=== PATIENT | female | born 1980 | race Caucasian/White ===

== ENCOUNTER 2018-01-10 17:44 | Emergency (ER) | payer OTHER ==
[2015-05-07 09:14] VITALS: Wt 81.6 kg
[~2018-01-10 17:44] MED LIST: BUSP10TA95 PO; CYCL10TA29 PO; DIAZ-305 PO; GABA-551 PO; LORA-636 PO; MULT-865 PO; NEOM28OI14 TP; PER PO; TRAZ100T31 PO; VENL75CA58 PO
[2018-01-10 17:53] VITALS: BP 147/94
[2018-01-10] MEDS ORDERED: TRINTELLIX PO (18:04)
--- NOTE | 2018-01-10 18:13 | ER Report ---
History and Physical Time Seen By MD: 18:40 Hx. of Stated Complaint: right sided abd for the past 6 hours HPI/ROS CHIEF COMPLAINT: Right-sided back pain/Right abdominal pain HISTORY OF PRESENT ILLNESS: Patient is a 37-year-old female here with complaints of right-sided back pain, right sided abdominal pain, nausea, vomiting. Patient reportedly has had this pain before which she attributes to straining while lifting. Pain has been present for the past several hours. Denies fevers, chills, chest pain, shortness of breath, headache, blurred vision , incontinence of bowel or bladder. REVIEW OF SYSTEMS: Constitutional: No fever, no chills. Eyes: No discharge. ENT: No sore throat. Cardiovascular: No chest pain, no palpitations. Respiratory: No cough, no shortness of breath. Gastrointestinal: + right sided abdominal pain, nausea Genitourinary: No hematuria. Musculoskeletal: + Right sided back pain Skin: No rashes. Neurological: No headache. Allergies: Coded Allergies: No Known Drug Allergies (Unverified , 08/22/16) Home Meds Active Scripts Glycopyrrolate (GLYCOPYRROLATE) 1 Mg Tablet, 1 TAB PO BID Y for PAIN, #10 TAB 0 Refills Use up to twice each day as needed for gallbladder pain Prov:PAOLA EDDY MD 01/16/18 Cephalexin 500 Mg Tab (KEFLEX 500 MG TAB) 500 Mg Tablet, 500 MG PO Q6H, #20 TAB 0 Refills TAKE ONE TABLET BY MOUTH EVERY SIX HOURS Prov:ROGER PA MD 01/15/18 Ondansetron Hcl (ZOFRAN) 4 Mg Tablet, 4 MG PO Q8H for Nausea, #15 TAB 0 Refills Prov:ROGER PA MD 01/15/18 Ondansetron (ZOFRAN ODT) 4 Mg Tab.rapdis, 4 MG PO Q6H Y for NAUSEA/VOMITING, # 20 TAB.ANN 0 Refills Prov:ERICK CONDE DO 01/10/18 Oxycodone Hcl/Acetaminophen (PERCOCET 5-325 MG TABLET) 1 Each Tablet, 1 EACH PO Q4H Y for PAIN, #6 TAB 0 Refills Prov:ERICK CONDE DO 01/10/18 Reported Medications Gabapentin (GABAPENTIN) 300 Mg Capsule, 800 MG PO BID for Anxiety, CAPSULE 01/17/18 Cholecalciferol (Vitamin D3) (VITAMIN D3) 1,000 Unit Tablet, 1000 UNIT PO 5XD, TAB 01/16/18 Aripiprazole (ABILIFY) 5 Mg Tablet, 5 MG PO BID, TAB 01/16/18 Ropinirole Hcl (ROPINIROLE HCL) 3 Mg Tablet, 3 MG PO DAILY 01/16/18 [Trintellix ] No Conflict Check, 30 MG PO DAILY 01/10/18 Buspirone Hcl (BUSPIRONE HCL) 10 Mg Tablet, 30 MG PO BID, TAB 05/06/15 Lorazepam (LORAZEPAM) 2 Mg Tablet, 2 MG PO BID Y for ANXIETY/AGITATION 05/06/15 Discontinued Scripts Oxycodone Hcl/Acet 5/325 Mg (ENDOCET 5-325 TABLET) 1 Each Tablet, 1 TAB PO Q6H Y for PAIN, #10 TAB 0 Refills Prov:PAOLA EDDY MD 01/16/18 Oxycodone Hcl/Acetaminophen (PERCOCET 5-325 MG TABLET) 1 Each Tablet, 1 EACH PO Q4H for PAIN, #15 TAB 0 Refills Prov:ROGER PA MD 01/15/18 Dicyclomine Hcl (DICYCLOMINE HCL) 20 Mg Tablet, 20 MG PO QID for abdominal cramping, #30 TAB Prov:ROGER PA MD 01/15/18 Cyclobenzaprine Hcl (CYCLOBENZAPRINE HCL) 10 Mg Tablet, 10 MG PO TID for m, #9 TAB 0 Refills Prov:ROGER PA MD 08/22/16 Hx Smoking: No Smoking Status: Never Smoker Exposure to Second Hand Smoke?: No Hx Substance Use Disorder: No Hx Alcohol Use: No Constitutional Physical Exam General Appearance: The patient is alert, has no immediate need for airway protection and no signs of toxicity. Mild distress secondary to pain Eyes: Pupils equal and round no pallor or injection. ENT, Mouth: Mucous membranes are moist. Respiratory: There are no retractions, lungs are clear to auscultation. Cardiovascular: Regular rate and rhythm. Gastrointestinal: Abdomen is soft and + tender right abdomen, no masses, bowel sounds normal. Neurological: No focal neurological deficits Skin: Warm and dry, no rashes. Musculoskeletal: + Right-sided back pain on palpation and range of motion Extremities are nontender, nonswollen and have full range of motion. [ ] DIFFERENTIAL DIAGNOSIS: After history and physical exam differential diagnosis was considered for back pain including but not limited to muscular pain, herniated disc, spine fracture, intra-abdominal causes and urinary tract infection. Medical Decision Making Data Points Laboratory Hematology Test 01/10/18 18:06 01/10/18 18:52 Urine Color Yellow Urine Clarity Slightly-cloudy Urine pH 5.0 pH (4.8-9.5) Urine Specific [place] 1.024 Urine Protein Negative mg/dL (NEGATIVE) Urine Glucose (UA) Negative mg/dL (NEGATIVE) Urine Ketones Negative mg/dL (NEGATIVE) Urine Blood Small (NEGATIVE) Urine Nitrite Negative (NEGATIVE) Urine Bilirubin Negative (NEGATIVE) Urine Urobilinogen Negative mg/dL (0.2-1.9) Urine Leukocyte Esterase Small (NEGATIVE) Urine RBC 1 /HPF (0-2/HPF) Urine WBC 2 /HPF (0-5/HPF) Urine Squamous Epithelial Cells Many /LPF (</=FEW) Urine Calcium Oxalate Crystals Moderate /HPF (NONE) Urine Bacteria Few /HPF (NONE-FEW) Urine Hyaline Casts Few /LPF (NONE-FEW) Urine Mucus Few /HPF (NONE-FEW) Urine HCG, Qualitative Negative (NEGATIVE) Red Blood Count 4.64 M/uL (4.17-5.56) Mean Corpuscular Volume 89.3 fL (80.0-96.0) Mean Corpuscular Hemoglobin 31.7 pg (26.0-33.0) Mean Corpuscular Hemoglobin Concent 35.5 g/dL (32.0-36.0) Red Cell Distribution Width 14.8 % (11.5-14.5) Mean Platelet Volume 8.1 fL (7.2-11.1) Neutrophils (%) (Auto) 72.4 % (39.4-72.5) Lymphocytes (%) (Auto) 18.0 % (17.6-49.6) Monocytes (%) (Auto) 8.6 % (4.1-12.4) Eosinophils (%) (Auto) 0.4 % (0.4-6.7) Basophils (%) (Auto) 0.6 % (0.3-1.4) Nucleated RBC Relative Count (auto) 0.0 /100WBC Neutrophils # (Auto) 6.8 K/uL (2.0-7.4) Lymphocytes # (Auto) 1.7 K/uL (1.3-3.6) Monocytes # (Auto) 0.8 K/uL (0.3-1.0) Eosinophils # (Auto) 0.0 K/uL (0.0-0.5) Basophils # (Auto) 0.1 K/uL (0.0-0.1) Nucleated RBC Absolute Count (auto) 0.00 K/uL Sodium Level 139 mmol/L (137-145) Potassium Level 4.0 mmol/L (3.5-5.0) Chloride Level 103 mmol/L (98-107) Carbon Dioxide Level 25 mmol/L (22-31) Blood Urea Nitrogen 10 mg/dl (7-18) Creatinine 1.00 mg/dl (0.52-1.04) Glomerular Filtration Rate Calc > 60.0 Random Glucose 101 mg/dl (75-110) Calcium Level 9.2 mg/dl (8.4-10.2) Total Bilirubin 0.4 mg/dl (0.2-1.3) Aspartate Amino Transf (AST/SGOT) 21 U/L (0-35) Alanine Aminotransferase (ALT/SGPT) 28 U/L (0-56) Alkaline Phosphatase 45 U/L (0-126) Total Protein 7.7 g/dl (6.3-8.2) Albumin 4.5 g/dl (3.5-5.0) Lipase 38 U/L (23-300) Chemistry Test 01/10/18 18:06 01/10/18 18:52 Urine Color Yellow Urine Clarity Slightly-cloudy Urine pH 5.0 pH (4.8-9.5) Urine Specific [place] 1.024 Urine Protein Negative mg/dL (NEGATIVE) Urine Glucose (UA) Negative mg/dL (NEGATIVE) Urine Ketones Negative mg/dL (NEGATIVE) Urine Blood Small (NEGATIVE) Urine Nitrite Negative (NEGATIVE) Urine Bilirubin Negative (NEGATIVE) Urine Urobilinogen Negative mg/dL (0.2-1.9) Urine Leukocyte Esterase Small (NEGATIVE) Urine RBC 1 /HPF (0-2/HPF) Urine WBC 2 /HPF (0-5/HPF) Urine Squamous Epithelial Cells Many /LPF (</=FEW) Urine Calcium Oxalate Crystals Moderate /HPF (NONE) Urine Bacteria Few /HPF (NONE-FEW) Urine Hyaline Casts Few /LPF (NONE-FEW) Urine Mucus Few /HPF (NONE-FEW) Urine HCG, Qualitative Negative (NEGATIVE) White Blood Count 9.4 k/uL (4.5-11.0) Red Blood Count 4.64 M/uL (4.17-5.56) Hemoglobin 14.7 g/dL (12.0-16.0) Hematocrit 41.5 % (34.0-47.0) Mean Corpuscular Volume 89.3 fL (80.0-96.0) Mean Corpuscular Hemoglobin 31.7 pg (26.0-33.0) Mean Corpuscular Hemoglobin Concent 35.5 g/dL (32.0-36.0) Red Cell Distribution Width 14.8 % (11.5-14.5) Platelet Count 269 K/uL (150-450) Mean Platelet Volume 8.1 fL (7.2-11.1) Neutrophils (%) (Auto) 72.4 % (39.4-72.5) Lymphocytes (%) (Auto) 18.0 % (17.6-49.6) Monocytes (%) (Auto) 8.6 % (4.1-12.4) Eosinophils (%) (Auto) 0.4 % (0.4-6.7) Basophils (%) (Auto) 0.6 % (0.3-1.4) Nucleated RBC Relative Count (auto) 0.0 /100WBC Neutrophils # (Auto) 6.8 K/uL (2.0-7.4) Lymphocytes # (Auto) 1.7 K/uL (1.3-3.6) Monocytes # (Auto) 0.8 K/uL (0.3-1.0) Eosinophils # (Auto) 0.0 K/uL (0.0-0.5) Basophils # (Auto) 0.1 K/uL (0.0-0.1) Nucleated RBC Absolute Count (auto) 0.00 K/uL Glomerular Filtration Rate Calc > 60.0 Calcium Level 9.2 mg/dl (8.4-10.2) Total Bilirubin 0.4 mg/dl (0.2-1.3) Aspartate Amino Transf (AST/SGOT) 21 U/L (0-35) Alanine Aminotransferase (ALT/SGPT) 28 U/L (0-56) Alkaline Phosphatase 45 U/L (0-126) Total Protein 7.7 g/dl (6.3-8.2) Albumin 4.5 g/dl (3.5-5.0) Lipase 38 U/L (23-300) Urinalysis Test 01/10/18 18:06 Urine Color Yellow Urine Clarity Slightly-cloudy Urine pH 5.0 pH (4.8-9.5) Urine Specific [place] 1.024 Urine Protein Negative mg/dL (NEGATIVE) Urine Glucose (UA) Negative mg/dL (NEGATIVE) Urine Ketones Negative mg/dL (NEGATIVE) Urine Blood Small (NEGATIVE) Urine Nitrite Negative (NEGATIVE) Urine Bilirubin Negative (NEGATIVE) Urine Urobilinogen Negative mg/dL (0.2-1.9) Urine Leukocyte Esterase Small (NEGATIVE) Urine RBC 1 /HPF (0-2/HPF) Urine WBC 2 /HPF (0-5/HPF) Urine Squamous Epithelial Cells Many /LPF (</=FEW) Urine Calcium Oxalate Crystals Moderate /HPF (NONE) Urine Bacteria Few /HPF (NONE-FEW) Urine Hyaline Casts Few /LPF (NONE-FEW) Urine Mucus Few /HPF (NONE-FEW) Urine HCG, Qualitative Negative (NEGATIVE) EKG/Imaging Imaging EXAMINATION: Right upper quadrant abdominal ultrasound HISTORY: Right upper quadrant abdominal pain. COMPARISON: CT abdomen/pelvis performed today. FINDINGS: Liver: Normal hepatic echotexture. No focal liver lesions identified. Antegrade flow is visualized in the main portal vein. Gallbladder: Cholelithiasis, with multiple shadowing stones in the gallbladder. No gallbladder wall thickening or pericholecystic fluid. Negative sonographic Mock sign. Bile Ducts: No biliary ductal dilatation. The common duct measures 3 mm. Pancreas: The head and body of the pancreas are moderately well visualized and unremarkable where seen. Right kidney: Normal echogenicity of the right kidney. The renal cortical parenchyma is maintained. No hydronephrosis. The right kidney measures 10.4 cm in length. Aorta: Patent and normal in caliber. IVC: Patent. Ascites: None. IMPRESSION: 1. Cholelithiasis, without ultrasound evidence of cholecystitis. 2. No bile duct dilatation. EXAMINATION: CT abdomen and pelvis with contrast COMPARISON: None. HISTORY: Right-sided abdominal pain. PROCEDURE: Multiplanar contrast enhanced CT of the abdomen and pelvis with 75 mL intravenous Isovue 370. One of the following dose optimization techniques was utilized in the performance of this exam: Automated exposure control; adjustment of the mA and/or kV according to the patient's size; or use of an iterative reconstruction technique. Specific details can be referenced in the facility's radiology CT exam operational policy. FINDINGS: Visualized thorax: Right middle lobe 5 mm nodule. Mild atelectasis. No acute findings. Liver: Negative. Gallbladder and biliary system: Cholelithiasis. No pericholecystic inflammation. No bile duct dilation. Spleen: Negative. Pancreas: Negative. Adrenal glands: Negative. Kidneys and bladder: No renal mass or evidence of an obstructive uropathy. Urinary bladder is unremarkable. Vessels: Within normal limits. Bowel and mesentery: Stomach, small bowel, and appendix are unremarkable. Minimal stool in the colon. No bowel or mesenteric inflammation. Pelvic organs: Left ovary corpus luteum. No acute findings. Lymph nodes: No adenopathy. Free air/free fluid: None. Abdominal wall and osseous structures: Negative. IMPRESSION: 1. No findings of acute disease in the abdomen or pelvis. 2. Cholelithiasis. ED Course/Re-evaluation ED Course Patient is a 37-year-old female here with complaints of right-sided back pain and right upper abdominal pain without incontinence of bowel or bladder, focal neurological deficits, nausea vomiting, chest pain, shortness breath, neck pain. CBC, CMP, lipase, urinalysis were unremarkable. CT imaging of the abdomen and pelvis were remarkable for cholelithiasis. Due to the patient's clinical exam and right-sided abdominal pain and presence of cholelithiasis, right upper quadrant ultrasound of the gallbladder was completed to rule out cholecystitis. There are no signs of bladder wall thickening, pericholecystic fluid, fevers, leukocytosis. Patient was given fluid bolus, Toradol, diazepam, Zofran with significant relief of symptoms. Patient was given Percocet and Zofran for outpatient analgesia and antiemetic. Patient was well-appearing in stable at time of discharge. Decision to Disposition Date: Jan 10, 2018 Decision to Disposition Time: 22:00 Depart Departure Latest Vital Signs Impression: Primary Impression: Abdominal pain Condition: Improved Disposition: HOME OR SELF-CARE Referrals: TONY MCGRATH PA-C (PCP) New Scripts Ondansetron (ZOFRAN ODT) 4 Mg Tab.rapdis 4 MG PO Q6H Y for NAUSEA/VOMITING, #20 TAB.ANN 0 Refills Prov: ERICK CONDE DO 01/10/18 Oxycodone Hcl/Acetaminophen (PERCOCET 5-325 MG TABLET) 1 Each Tablet 1 EACH PO Q4H Y for PAIN, #6 TAB 0 Refills Prov: ERICK CONDE DO 01/10/18 Patient Instructions: Abdominal Pain (ED) Additional Instructions: Please follow-up with your family doctor in the next 3 days. Please return promptly if develop worsening abdominal pain, fevers, nausea, vomiting, difficulty urinating. ERICK CONDE DO Jan 10, 2018 18:13
[2018-01-10] MEDS ORDERED: NS(*) 0.9% 1000 ML BAG 1,000 ML IV ONE (18:36)
[2018-01-10] MEDS ORDERED: ONDANSETRON 4 MG/2 ML VIAL IVP ONE (18:40)
[2018-01-10] MEDS ORDERED: DIAZEPAM 50 MG/10 ML MDV IVP ONE (18:40)
[2018-01-10] MEDS ORDERED: KETOROLAC 30 MG/ML VIAL IM ONE (18:40)
[2018-01-10 19:04] LABS: PLATELET COUNT, AUTOMATED 269 K/uL (150-450)
[2018-01-10] MEDS ORDERED: IOPAMIDOL 76% 100 ML INFUS BTL 100 ML ONE (19:20)
--- NOTE | 2018-01-10 20:28 | RADIOLOGY IMAGING REPORT ---
FACILITY: [facility] [place] PATIENT NAME: Katlyn Vidal : 1980 MR: [id number] V: [id number] EXAM DATE: ORDERING PHYSICIAN: ERICK CONDE TECHNOLOGIST: Location: [facility] Patient: Katlyn Vidal : 1980 Visit/Account:[id number] Date of Sevice: 01/10/2018 EXAMINATION: CT abdomen and pelvis with contrast COMPARISON: None. HISTORY: Right-sided abdominal pain. PROCEDURE: Multiplanar contrast enhanced CT of the abdomen and pelvis with 75 mL intravenous Isovue 3 70. One of the following dose optimization techniques was utilized in the performance of this exam: A utomated exposure control; adjustment of the mA and/or kV according to the patient's size; or use of an iterative reconstruction technique. Specific details can be referenced in the facility's radiolo gy CT exam operational policy. FINDINGS: Visualized thorax: Right middle lobe 5 mm nodule. Mild atelectasis. No acute findings. Liver: Negative. Gallbladder and biliary system: Cholelithiasis. No pericholecystic inflammation. No bile duct dilatio n. Spleen: Negative. Pancreas: Negative. Adrenal glands: Negative. Kidneys and bladder: No renal mass or evidence of an obstructive uropathy. Urinary bladder is unrema rkable. Vessels: Within normal limits. Bowel and mesentery: Stomach, small bowel, and appendix are unremarkable. Minimal stool in the colon. No bowel or mesenteric inflammation. Pelvic organs: Left ovary corpus luteum. No acute findings. Lymph nodes: No adenopathy. Free air/free fluid: None. Abdominal wall and osseous structures: Negative. IMPRESSION: 1. No findings of acute disease in the abdomen or pelvis. 2. Cholelithiasis. Report Dictated By: Billy Drake MD at 01/10/2018 8:18 PM Report E-Signed By: Billy Drake MD at 01/10/2018 8:24 PM WSN:[id number]
--- NOTE | 2018-01-10 22:07 | RADIOLOGY IMAGING REPORT ---
[place] [facility] [place]IENT NAME: Katlyn Vidal : 1980 MR: [id number] V: [id number] EXAM DATE: ORDERING PHYSICIAN: ERICK CONDE TECHNOLOGIST: Location: [facility] [place] Patient: Katlyn Vidal : 1980 Visit/Account:[id number] Date of Sevice: 01/10/2018 EXAMINATION: Right upper quadrant abdominal ultrasound HISTORY: Right upper quadrant abdominal pain. COMPARISON: CT abdomen/pelvis performed today. FINDINGS: Liver: Normal hepatic echotexture. No focal liver lesions identified. Antegrade flow is visualized in the main portal vein. Gallbladder: Cholelithiasis, with multiple shadowing stones in the gallbladder. No gallbladder wall thickening or pericholecystic fluid. Negative sonographic Mock sign. Bile Ducts: No biliary ductal dilatation. The common duct measures 3 mm. Pancreas: The head and body of the pancreas are moderately well visualized and unremarkable where se en. Right kidney: Normal echogenicity of the right kidney. The renal cortical parenchyma is maintained. N o hydronephrosis. The right kidney measures 10.4 cm in length. Aorta: Patent and normal in caliber. IVC: Patent. Ascites: None. IMPRESSION: 1. Cholelithiasis, without ultrasound evidence of cholecystitis. 2. No bile duct dilatation. Report Dictated By: Kaden Lopez MD at 01/10/2018 9:56 PM Report E-Signed By: Kaden Lopez MD at 01/10/2018 10:03 PM WSN:[id number]
[2018-01-10] MEDS ORDERED: OXYC-865 PO (22:17)
[2018-01-10] MEDS ORDERED: ONDA4TAB PO (22:17)
[2018-01-16] MEDS ORDERED: GLYC1TAB13 PO (15:03)
[2018-01-16] MEDS ORDERED: OXYC-854 PO (15:03)
[2018-01-16] MEDS ORDERED: ABILIF5PT PO (15:31)
[2018-01-16] MEDS ORDERED: ROPI3TAB16 PO (15:31)
[2018-01-16] MEDS ORDERED: CHOL10005 PO (15:31)
[2018-01-17] MEDS ORDERED: GABA-549 PO (15:21)
== END 2018-01-10 22:30 | disposition home or self-care (01) ==
LOC: ER 18:15
DX: R10.9 Unspecified abdominal pain (principal)
CPT/HCPCS: 74177; 76705; 81001; 81025; 83690; 85025; 96361; 96372; 96374; 96375; 99284; J1885; J2405; J3360; J7030; Q9967; 82040; 82247; 82310; 82374; 82435; 82565; 82947; 84075; 84132; 84155; 84295; 84450; 84460; 84520

== ENCOUNTER 2018-01-15 13:14 | Emergency (ER) | payer OTHER ==
[2015-05-07 09:14] VITALS: Wt 86.2 kg
[~2018-01-15 13:14] MED LIST changes: +ONDA4TAB PO; +OXYC-865 PO; +TRINTELLIX PO
--- NOTE | 2018-01-15 13:16 | ER Report ---
History and Physical Time Seen By MD: 13:15 HPI/ROS CHIEF COMPLAINT: Abdominal pain HISTORY OF PRESENT ILLNESS: Patient was seen on January 10 for abdominal pain. At that time she had a CT scan of the abdomen and pelvis with IV contrast that just revealed cholelithiasis she was subsequently sent for a gallbladder ultrasound which showed cholelithiasis without ultrasound evidence of cholecystitis. Patient states that she was having episodic pain to the right upper quadrant may be related to meals, states no relation to time of day. Pain at that time was waxing and waning in intensity as stated before she was seen in the emergency department on January 10 and had a negative CT as well as a right upper quadrant ultrasound. She states since leaving the hospital this past the pain has been persistent. She also notices water brash and reflux type symptoms. She denies any fevers or chills. She was supposed to see her primary care provider today but because the symptoms have been constant and worsening she presents to the emergency department. She did take one Percocet prior to arrival and currently rates her pain at 6 out of 10 in intensity. REVIEW OF SYSTEMS: Constitutional: No fever, no chills. Eyes: No discharge. ENT: No sore throat. Cardiovascular: No chest pain, no palpitations. Respiratory: No cough, no shortness of breath. Gastrointestinal: Right upper quadrant abdominal pain, reflux, nausea without vomiting or diarrhea Genitourinary: No hematuria. Musculoskeletal: No back pain. Skin: No rashes. Neurological: No headache. Allergies: Coded Allergies: No Known Drug Allergies (Unverified , 08/22/16) Home Meds Active Scripts Cephalexin 500 Mg Tab (KEFLEX 500 MG TAB) 500 Mg Tablet, 500 MG PO Q6H, #20 TAB 0 Refills TAKE ONE TABLET BY MOUTH EVERY SIX HOURS Prov:ROGER PA MD 01/15/18 Oxycodone Hcl/Acetaminophen (PERCOCET 5-325 MG TABLET) 1 Each Tablet, 1 EACH PO Q4H for PAIN, #15 TAB 0 Refills Prov:ROGER PA MD 01/15/18 Ondansetron Hcl (ZOFRAN) 4 Mg Tablet, 4 MG PO Q8H for Nausea, #15 TAB 0 Refills Prov:ROGER PA MD 01/15/18 Dicyclomine Hcl (DICYCLOMINE HCL) 20 Mg Tablet, 20 MG PO QID for abdominal cramping, #30 TAB Prov:ROGER PA MD 01/15/18 Ondansetron (ZOFRAN ODT) 4 Mg Tab.rapdis, 4 MG PO Q6H Y for NAUSEA/VOMITING, # 20 TAB.ANN 0 Refills Prov:CONDEDEISRE SONLAS S DO 01/10/18 Oxycodone Hcl/Acetaminophen (PERCOCET 5-325 MG TABLET) 1 Each Tablet, 1 EACH PO Q4H Y for PAIN, #6 TAB 0 Refills Prov:CONDEERICK S DO 01/10/18 Cyclobenzaprine Hcl (CYCLOBENZAPRINE HCL) 10 Mg Tablet, 10 MG PO TID for m, #9 TAB 0 Refills Prov:ROGER PA MD 08/22/16 Reported Medications [Trintellix ] No Conflict Check, 30 MG PO DAILY 01/10/18 Buspirone Hcl (BUSPIRONE HCL) 10 Mg Tablet, 30 MG PO BID, TAB 05/06/15 Lorazepam (LORAZEPAM) 2 Mg Tablet, 2 MG PO BID Y for ANXIETY/AGITATION 05/06/15 Discontinued Reported Medications Venlafaxine Hcl (EFFEXOR XR) 75 Mg Cap.er.24h, 150 MG PO BID 05/06/15 Discontinued Scripts Oxycodone/Acetaminophen (OXYCODONE/ACETAMINOPHEN 5MG/325 MG) 5 Mg/325 Mg Tab, 1 TAB PO Q4-6H for PAIN, #30 TAB 0 Refills Prov:ROGER PA MD 08/22/16 Past Medical/Surgical History Past medical history for anxiety disorder I'll also 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 Eyes: Pupils equal and round no injection. Respiratory: Chest is non tender, lungs are clear to auscultation. Cardiac: regular rate and rhythm Gastrointestinal: Right upper quadrant pain to palpation, epigastric area is nontender lower abdominal quadrants nontender no voluntary or involuntary guarding no rebound tenderness Musculoskeletal: Neck: Neck is supple and non tender. Extremities have full range of motion and are non tender. Skin: No rashes or lesions. Medical Decision Making Data Points Result Diagram: 01/15/18 1410 01/15/18 1410 Laboratory Hematology Test 01/15/18 13:51 01/15/18 14:10 Urine Color Yellow Urine Clarity Slightly-cloudy Urine pH 5.0 pH (4.8-9.5) Urine Specific [place] 1.028 Urine Protein Negative mg/dL (NEGATIVE) Urine Glucose (UA) Negative mg/dL (NEGATIVE) Urine Ketones Negative mg/dL (NEGATIVE) Urine Blood Negative (NEGATIVE) Urine Nitrite Positive (NEGATIVE) Urine Bilirubin Negative (NEGATIVE) Urine Urobilinogen Negative mg/dL (0.2-1.9) Urine Leukocyte Esterase Trace (NEGATIVE) Urine RBC None /HPF (0-2/HPF) Urine WBC 2 /HPF (0-5/HPF) Urine Squamous Epithelial Cells Many /LPF (</=FEW) Urine Bacteria Moderate /HPF (NONE-FEW) Urine Mucus Few /HPF (NONE-FEW) Red Blood Count 4.52 M/uL (4.17-5.56) Mean Corpuscular Volume 89.8 fL (80.0-96.0) Mean Corpuscular Hemoglobin 31.0 pg (26.0-33.0) Mean Corpuscular Hemoglobin Concent 34.5 g/dL (32.0-36.0) Red Cell Distribution Width 14.8 % (11.5-14.5) Mean Platelet Volume 8.3 fL (7.2-11.1) Neutrophils (%) (Auto) 71.0 % (39.4-72.5) Lymphocytes (%) (Auto) 18.9 % (17.6-49.6) Monocytes (%) (Auto) 8.4 % (4.1-12.4) Eosinophils (%) (Auto) 1.0 % (0.4-6.7) Basophils (%) (Auto) 0.7 % (0.3-1.4) Nucleated RBC Relative Count (auto) 0.0 /100WBC Neutrophils # (Auto) 8.3 K/uL (2.0-7.4) Lymphocytes # (Auto) 2.2 K/uL (1.3-3.6) Monocytes # (Auto) 1.0 K/uL (0.3-1.0) Eosinophils # (Auto) 0.1 K/uL (0.0-0.5) Basophils # (Auto) 0.1 K/uL (0.0-0.1) Nucleated RBC Absolute Count (auto) 0.00 K/uL Peripheral Blood Smear No Y/N Sodium Level 138 mmol/L (137-145) Potassium Level 3.7 mmol/L (3.5-5.0) Chloride Level 105 mmol/L (98-107) Carbon Dioxide Level 21 mmol/L (22-31) Blood Urea Nitrogen 13 mg/dl (7-18) Creatinine 0.90 mg/dl (0.52-1.04) Glomerular Filtration Rate Calc > 60.0 Random Glucose 95 mg/dl (75-110) Calcium Level 8.5 mg/dl (8.4-10.2) Total Bilirubin 0.4 mg/dl (0.2-1.3) Aspartate Amino Transf (AST/SGOT) 18 U/L (0-35) Alanine Aminotransferase (ALT/SGPT) 26 U/L (0-56) Alkaline Phosphatase 36 U/L (0-126) Total Protein 7.1 g/dl (6.3-8.2) Albumin 4.1 g/dl (3.5-5.0) Lipase 53 U/L (23-300) Human Chorionic Gonadotropin, Qual Negative (NEGATIVE) Helicobacter pylori IgG Antibody Negative (NEGATIVE) Chemistry Test 01/15/18 13:51 01/15/18 14:10 Urine Color Yellow Urine Clarity Slightly-cloudy Urine pH 5.0 pH (4.8-9.5) Urine Specific [place] 1.028 Urine Protein Negative mg/dL (NEGATIVE) Urine Glucose (UA) Negative mg/dL (NEGATIVE) Urine Ketones Negative mg/dL (NEGATIVE) Urine Blood Negative (NEGATIVE) Urine Nitrite Positive (NEGATIVE) Urine Bilirubin Negative (NEGATIVE) Urine Urobilinogen Negative mg/dL (0.2-1.9) Urine Leukocyte Esterase Trace (NEGATIVE) Urine RBC None /HPF (0-2/HPF) Urine WBC 2 /HPF (0-5/HPF) Urine Squamous Epithelial Cells Many /LPF (</=FEW) Urine Bacteria Moderate /HPF (NONE-FEW) Urine Mucus Few /HPF (NONE-FEW) White Blood Count 11.7 k/uL (4.5-11.0) Red Blood Count 4.52 M/uL (4.17-5.56) Hemoglobin 14.0 g/dL (12.0-16.0) Hematocrit 40.6 % (34.0-47.0) Mean Corpuscular Volume 89.8 fL (80.0-96.0) Mean Corpuscular Hemoglobin 31.0 pg (26.0-33.0) Mean Corpuscular Hemoglobin Concent 34.5 g/dL (32.0-36.0) Red Cell Distribution Width 14.8 % (11.5-14.5) Platelet Count 305 K/uL (150-450) Mean Platelet Volume 8.3 fL (7.2-11.1) Neutrophils (%) (Auto) 71.0 % (39.4-72.5) Lymphocytes (%) (Auto) 18.9 % (17.6-49.6) Monocytes (%) (Auto) 8.4 % (4.1-12.4) Eosinophils (%) (Auto) 1.0 % (0.4-6.7) Basophils (%) (Auto) 0.7 % (0.3-1.4) Nucleated RBC Relative Count (auto) 0.0 /100WBC Neutrophils # (Auto) 8.3 K/uL (2.0-7.4) Lymphocytes # (Auto) 2.2 K/uL (1.3-3.6) Monocytes # (Auto) 1.0 K/uL (0.3-1.0) Eosinophils # (Auto) 0.1 K/uL (0.0-0.5) Basophils # (Auto) 0.1 K/uL (0.0-0.1) Nucleated RBC Absolute Count (auto) 0.00 K/uL Peripheral Blood Smear No Y/N Glomerular Filtration Rate Calc > 60.0 Calcium Level 8.5 mg/dl (8.4-10.2) Total Bilirubin 0.4 mg/dl (0.2-1.3) Aspartate Amino Transf (AST/SGOT) 18 U/L (0-35) Alanine Aminotransferase (ALT/SGPT) 26 U/L (0-56) Alkaline Phosphatase 36 U/L (0-126) Total Protein 7.1 g/dl (6.3-8.2) Albumin 4.1 g/dl (3.5-5.0) Lipase 53 U/L (23-300) Human Chorionic Gonadotropin, Qual Negative (NEGATIVE) Helicobacter pylori IgG Antibody Negative (NEGATIVE) Urinalysis Test 01/15/18 13:51 Urine Color Yellow Urine Clarity Slightly-cloudy Urine pH 5.0 pH (4.8-9.5) Urine Specific [place] 1.028 Urine Protein Negative mg/dL (NEGATIVE) Urine Glucose (UA) Negative mg/dL (NEGATIVE) Urine Ketones Negative mg/dL (NEGATIVE) Urine Blood Negative (NEGATIVE) Urine Nitrite Positive (NEGATIVE) Urine Bilirubin Negative (NEGATIVE) Urine Urobilinogen Negative mg/dL (0.2-1.9) Urine Leukocyte Esterase Trace (NEGATIVE) Urine RBC None /HPF (0-2/HPF) Urine WBC 2 /HPF (0-5/HPF) Urine Squamous Epithelial Cells Many /LPF (</=FEW) Urine Bacteria Moderate /HPF (NONE-FEW) Urine Mucus Few /HPF (NONE-FEW) ED Course/Re-evaluation Clinical Indication for ER IV: Hydration, IV Access ED Course 01/15/2018 1:56:48 pm we'll repeat abdominal labs. I will give IV fluids, morphine, Zofran. 01/15/2018 2:13:07 pm urine suggestive of a urinary tract infection based on positive nitrites, leuk esterase and bacteria urine from January 10 was not as suggestive of infection Decision to Disposition Date: Jan 15, 2018 Decision to Disposition Time: 14:52 Depart Departure Latest Vital Signs Vital Signs Date Time Temp Pulse Resp B/P (MAP) Pulse Ox O2 Delivery O2 Flow Rate FiO2 01/15/18 13:22 98.1 100 18 139/90 94 Room Air Impression: Primary Impression: Biliary colic Additional Impression: Urinary tract infection Condition: Improved Disposition: HOME OR SELF-CARE Referrals: TONY MCGRATH PA-C (PCP) PAOLA EDDY MD 1 Week New Scripts Cephalexin 500 Mg Tab (KEFLEX 500 MG TAB) 500 Mg Tablet 500 MG PO Q6H, #20 TAB 0 Refills TAKE ONE TABLET BY MOUTH EVERY SIX HOURS Prov: ROGER PA MD 01/15/18 Oxycodone Hcl/Acetaminophen (PERCOCET 5-325 MG TABLET) 1 Each Tablet 1 EACH PO Q4H for PAIN, #15 TAB 0 Refills Prov: ROGER PA MD 01/15/18 Ondansetron Hcl (ZOFRAN) 4 Mg Tablet 4 MG PO Q8H for Nausea, #15 TAB 0 Refills Prov: ROGER PA MD 01/15/18 Dicyclomine Hcl (DICYCLOMINE HCL) 20 Mg Tablet 20 MG PO QID for abdominal cramping, #30 TAB Prov: ROGER PA MD 01/15/18 Additional Instructions: Call Dr. Guzman to schedule a follow-up appointment for reevaluation of your biliary colic pain. He should return to the emergency department if her pain is not controlled with the medication prescribed or he develop intractable vomiting or if you develop abdominal pain with fever at any time. Problem Qualifiers Additional Impression: Urinary tract infection Urinary tract infection type: acute cystitis Hematuria presence: without hematuria Qualified Codes: N30.00 - Acute cystitis without hematuria ROGER PA MD Jan 15, 2018 13:16
[2018-01-15] MEDS ORDERED: NS(*) 0.9% 1000 ML BAG 1,000 ML IV ONE (13:43)
[2018-01-15] MEDS ORDERED: ONDANSETRON 4 MG/2 ML VIAL IVP ONE (13:45)
[2018-01-15] MEDS ORDERED: MORPHINE 4 MG/ML SDV IVP ONE (13:45)
[2018-01-15] MEDS ORDERED: OXYC-865 PO (14:00)
[2018-01-15] MEDS ORDERED: ONDA4TAB97 PO (14:00)
[2018-01-15] MEDS ORDERED: DICY20TA70 PO (14:00)
[2018-01-15] MEDS ORDERED: CEPH500T7 PO (14:14)
[2018-01-15] MEDS ORDERED: cefTRIAXone 1 GM VIAL IVP ONE (14:15)
[2018-01-15 14:31] LABS: PLATELET COUNT, AUTOMATED 305 K/uL (150-450)
[2018-01-15 14:54] VITALS: BP 116/78
[2018-01-16] MEDS ORDERED: GLYC1TAB13 PO (15:03)
[2018-01-16] MEDS ORDERED: OXYC-854 PO (15:03)
[2018-01-16] MEDS ORDERED: CHOL10005 PO (15:31)
[2018-01-16] MEDS ORDERED: ROPI3TAB16 PO (15:31)
[2018-01-16] MEDS ORDERED: ABILIF5PT PO (15:31)
[2018-01-17] MEDS ORDERED: GABA-549 PO (15:21)
== END 2018-01-15 15:03 | disposition home or self-care (01) ==
LOC: ER 13:21
DX: K80.50 Calculus of bile duct without cholangitis or cholecystitis without obstruction (principal); N39.0 Urinary tract infection, site not specified
CPT/HCPCS: 81001; 83690; 84703; 85025; 86677; 87088; 96374; 96375; 99284; J0696; J2270; J2405; J7030; 82040; 82247; 82310; 82374; 82435; 82565; 82947; 84075; 84132; 84155; 84295; 84450; 84460; 84520; 87077; 87186

== ENCOUNTER 2018-01-24 00:50 | Day surgery (SDC) | payer OTHER ==
[2015-05-07 09:14] VITALS: Ht 170.2 cm; Wt 91.2 kg
[~2018-01-24] VITALS: Ht 170.2 cm; Wt 91.2 kg
[~2018-01-24 00:50] MED LIST changes: +ABILIF5PT PO; +CEPH500T7 PO; +CHOL10005 PO; +DICY20TA70 PO; +GABA-549 PO; +GLYC1TAB13 PO; +ONDA4TAB97 PO; +OXYC-854 PO; +ROPI3TAB16 PO
[2018-01-24 06:45] VITALS: BP 128/87
[2018-01-24] MEDS ORDERED: DEXAMETHASONE SOD PHOS 10MG/ML ONE (07:26)
[2018-01-24] MEDS ORDERED: PROPOFOL EMUL(*) 10MG/ML 20 ML 20 ML ONE (07:26)
[2018-01-24] MEDS ORDERED: ONDANSETRON 4 MG/2 ML VIAL ONE (07:26)
[2018-01-24] MEDS ORDERED: fentaNYL CITR 100 MCG/2 ML AMP ONE ×3 (07:26→11:01)
[2018-01-24] MEDS ORDERED: ROPIVACAINE 0.5% 20 ML VIAL ONE ×2 (07:26→07:40)
[2018-01-24] MEDS ORDERED: MIDAZOLAM 2 MG/2 ML VIAL ONE (07:27)
[2018-01-24] MEDS ORDERED: ROCURONIUM BROM 10 MG/ML 10 ML ONE (08:00)
[2018-01-24] MEDS ORDERED: SUGAMMADEX SOD 500 MG/5 ML SDV ONE ×2 (08:00→10:22)
[2018-01-24] MEDS ORDERED: LABETALOL HCL 100 MG/20ML VIAL ONE (08:00)
[2018-01-24] MEDS ORDERED: FAMOTIDINE 20 MG TAB PO ONE (09:00)
[2018-01-24] MEDS ORDERED: LIDOCAINE/SOD BICARB 8.4% SYR ID ONE (09:00)
[2018-01-24] MEDS ORDERED: AMPICILLIN/SULBACT (*) 3 GM VL 3 GM in NS(*) 0.9% 100 ML BAG 100 ML IVPB ONE (09:00)
[2018-01-24] MEDS ORDERED: ACETAMINOPHEN 500 MG TAB PO ONE (09:00)
[2018-01-24] MEDS ORDERED: MIDAZOLAM 2 MG/2 ML VIAL IVP PRN (09:00)
[2018-01-24] MEDS ORDERED: NORMOSOL R SOLN(*) 1000 ML BAG 1,000 ML IV PRN (09:00)
[2018-01-24] MEDS ORDERED: INDOCYANINE GREEN 25 MG VIAL IVP ONE (09:00)
[2018-01-24] MEDS ORDERED: NS(*) 0.9% 100 ML BAG 100 ML ONE (09:13)
[2018-01-24] MEDS ORDERED: OXYC-854 PO (10:54)
[2018-01-24] MEDS ORDERED: DOCU-416 PO (10:54)
--- NOTE | 2018-01-24 10:58 | Short(Outpt) Discharge Summary ---
Discharge Summary Reason for Hosp/Final Diag: (1) Acute cholecystitis Status: Chronic Hospital Course & Plan: Robotic simona completed without problems. (2) Cholelithiasis Status: Chronic (3) Biliary colic Status: Acute Departure Discharge to: Home, Self Care Discharge Instructions Home Meds Active Scripts Docusate Sodium (COLACE) 100 Mg Capsule, 1 CAP PO BID, #30 CAP 0 Refills TAKE WITH A FULL GLASS OF WATER Prov:PAOLA EDDY MD 01/24/18 Oxycodone Hcl/Acet 5/325 Mg (ENDOCET 5-325 TABLET) 1 Each Tablet, 1-2 TAB PO Q4H Y for PAIN, #30 TAB 0 Refills Prov:PAOLA EDDY MD 01/24/18 Glycopyrrolate (GLYCOPYRROLATE) 1 Mg Tablet, 1 TAB PO BID Y for PAIN, #10 TAB 0 Refills Use up to twice each day as needed for gallbladder pain Prov:PAOLA EDDY MD 01/16/18 Cephalexin 500 Mg Tab (KEFLEX 500 MG TAB) 500 Mg Tablet, 500 MG PO Q6H, #20 TAB 0 Refills TAKE ONE TABLET BY MOUTH EVERY SIX HOURS Prov:ROGER PA MD 01/15/18 Ondansetron Hcl (ZOFRAN) 4 Mg Tablet, 4 MG PO Q8H for Nausea, #15 TAB 0 Refills Prov:ROGER PA MD 01/15/18 Ondansetron (ZOFRAN ODT) 4 Mg Tab.rapdis, 4 MG PO Q6H Y for NAUSEA/VOMITING, # 20 TAB.ANN 0 Refills Prov:ERICK CONDE DO 01/10/18 Oxycodone Hcl/Acetaminophen (PERCOCET 5-325 MG TABLET) 1 Each Tablet, 1 EACH PO Q4H Y for PAIN, #6 TAB 0 Refills Prov:ERICK CONDE DO 01/10/18 Reported Medications Gabapentin (GABAPENTIN) 300 Mg Capsule, 800 MG PO BID for Anxiety, CAPSULE 01/17/18 Cholecalciferol (Vitamin D3) (VITAMIN D3) 1,000 Unit Tablet, 1000 UNIT PO 5XD, TAB 01/16/18 Aripiprazole (ABILIFY) 5 Mg Tablet, 5 MG PO BID, TAB 01/16/18 Ropinirole Hcl (ROPINIROLE HCL) 3 Mg Tablet, 3 MG PO DAILY 01/16/18 [Trintellix ] No Conflict Check, 30 MG PO DAILY 01/10/18 Buspirone Hcl (BUSPIRONE HCL) 10 Mg Tablet, 30 MG PO BID, TAB 05/06/15 Lorazepam (LORAZEPAM) 2 Mg Tablet, 2 MG PO BID Y for ANXIETY/AGITATION 05/06/15 Discontinued Scripts Oxycodone Hcl/Acet 5/325 Mg (ENDOCET 5-325 TABLET) 1 Each Tablet, 1 TAB PO Q6H Y for PAIN, #10 TAB 0 Refills Prov:PAOLA EDDY MD 01/16/18 Oxycodone Hcl/Acetaminophen (PERCOCET 5-325 MG TABLET) 1 Each Tablet, 1 EACH PO Q4H for PAIN, #15 TAB 0 Refills Prov:ROGER PA MD 01/15/18 Follow up Referrals: General Surgery - 02/08/18 @ Surgery, General with Paola Eddy Md You have a follow up appointment scheduled with Dr. Eddy on 02/08/18, at 1:00pm. Diet: Regular Activity: As Tolerated Special Instructions: You may remove the white surgical dressings on 01/26/18, then you can shower. After showering, leave the incisions open to air but leave the steristrips in place until they fall off on their own. Do not immerse the incisions for 2 weeks. Problem Qualifiers (1) Cholelithiasis: Cholelithiasis location: gallbladder Cholecystitis presence: with cholecystitis Cholecystitis acuity: acute Biliary obstruction: without biliary obstruction Qualified Codes: K80.00 - Calculus of gallbladder with acute cholecystitis without obstruction PAOLA EDDY MD Jan 24, 2018 10:58
--- NOTE | 2018-01-24 11:05 | Post Operative Progress Note ---
Post Operative Progress Note Date: Jan 24, 2018 Time: 10:58 Surgeon: Andrea [phone] Anesthesia: GETA by Dr. Dean Pre-Op Diagnosis: Symptomatic cholelithiasis Post-Op Diagnosis: Acute cholecystitis Findings: Very inflamed gallbladder, full of pus Procedure(s): Robotic cholecystectomy Specimen Removed:(May be N/A): GB and contents Complications: None Fluids: See anesthesia record Estimated Blood Loss: Minimal Date OP Note Dictated: Jan 24, 2018 Time OP Note Dictated: 10:59 PAOLA EDDY MD Jan 24, 2018 11:05
[2018-01-24 11:45] VITALS: BP 128/81
[2018-01-24 12:03] VITALS: BP 111/80
[2018-01-24 12:05] VITALS: BP 108/71
--- NOTE | 2018-01-24 12:23 | OPERATIVE REPORT 1 ---
EVENT DATE: January 24, 2018 SURGEON: Olu Mendez MD ANESTHESIOLOGIST: Derekc Dean MD ANESTHESIA: General endotracheal anesthesia. PREOPERATIVE DIAGNOSIS Symptomatic cholelithiasis. POSTOPERATIVE DIAGNOSIS Acute cholecystitis. PROCEDURE PERFORMED Robotic cholecystitis. COMPLICATIONS None. CONDITION Stable. BLOOD LOSS Minimal. FINDINGS The patient's gallbladder was very inflamed, edematous, and full of pus. SPECIMEN Gallbladder and contents. INDICATIONS This is a 37-year-old who presented to my office with increasingly severe and frequent right upper quadrant abdominal pain. She was consented for a robotic cholecystectomy based on her radiologic and laboratory evaluation in addition to her clinical picture. DESCRIPTION OF PROCEDURE The patient was brought to the operating room and placed supine on the operating table. General endotracheal anesthesia was administered. Her abdomen was prepped and draped in sterile fashion. A timout was complete. I injected the inferior umbilical skin with 0.5% Ropivacaine plain. I made a curvilinear smiley face-type incision in the infraumbilical rim and dissected through the dermis and subcutaneous fat. I then identified the midline fascia and made a vertical incision in the midline fascia, placed two interrupted 2-0 Vicryl sutures transversely through the vertical fascial defect, and then inserted a 12 mm Lamine-type robotic port into this wound and secured it in place with sutures. I insufflated the abdomen to a pressure of 15 mmHg. In then inserted the robotic camera into the patient's abdomen. Gross inspection of the abdominal cavity revealed an inflamed gallbladder, but no other evidence of pathology or interrelated injuries. Next under direct visualization, I placed an 8 mm robotic port on the left mid abdomen, and two 8 mm robotic ports on the left side of the abdomen, so they formed a line perpendicular to the ending point to the gallbladder. I then had the patient placed in reverse Trendelenburg and planed towards the left to remove the viscera from the right upper quadrant. I then docked the robot, and then targeted it, and inserted all of the instruments. Once everything was in place, I had good visualization of all of the instruments and the gallbladder, I scrubbed out and went to the console. I tried to grasp the fundus of the gallbladder, but it was too full, and so I ended up having to decompress the gallbladder by inserting a laparoscopic needle into the gallbladder and suctioning out some of the bile. This made it much easier to grasp and retracted the fundus up and to the patient 's right shoulder. There were some adhesions I took down with hook electrocautery using counter traction. Once I identified the infundibulum, I retracted this towards the patient's right hip and then divided the peritoneum over the infundibulum and the over the medial and lateral aspects of the gallbladder. I used Firefly routinely and intermittently through the case to identify the common bile duct, which was easily visible. There was no Firefly in the cystic duct though. I then stripped down the contents over the triangle of Calot and identified the cystic artery. I cleaned this off circumferentially and clipped proximally and distally and divided between clips. I then cleaned the cystic duct off circumferentially, and then while using Firefly to make sure I was staying away from the common bile duct, and then clipped it with three clips distally and one clip at the infundibular- cystic duct junction. I divided the duct between the clips. I then divided the posterior attachments of the gallbladder, it from the gallbladder fossa, and then placed the gallbladder in a surgical specimen retrieval bag and removed it from the abdomen through the umbilical port site. I irrigated and dried the right upper quadrant. I inspected the gallbladder fossa, cystic duct , and artery stumps, and there was no bleeding or bile leaks. I removed all of the irrigation and blood from the patient's right upper quadrant. I then removed the robotic instruments, undocked the robot, desufflated the abdomen, and removed all of the ports. I then closed the midline fascia with another [id number] Vicryl suture and tied all three of these down with good reapproximation of the fascial edges and no remaining fascial defect. I then closed the skin at each portal site with 4-0 Monocryl subcuticular suture. The skin was cleaned and dried, and Steri-Strips were applied, followed by sterile surgical dressings. The patient was awakened, extubated in the operating room, and transported to the recovery room in stable condition having tolerated the procedure without any apparent problems. YESSENIA
== END 2018-01-24 11:35 | disposition home or self-care (01) ==
LOC: OR 00:50
PROVIDERS: ATTEND Surgery
DX: K81.0 Acute cholecystitis (principal)
CPT/HCPCS: 47562; 81025; 88304; J0295; J1100; J2250; J2405; J2704; J2795; J3010; J3490; J7050; S2900